=== PATIENT | female | born 1965 | race Caucasian/White ===

== ENCOUNTER 2024-04-07 13:11 | Outpatient (AMB) | payer BC, SELFPAY ==
[2024-04-07 13:13] VITALS: BP 118/78; PULSE 96; O2SAT 98
--- NOTE | 2024-04-07 13:13 | A.OFFPC_ITS ---
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
--- NOTE | 2024-04-07 13:13 | MHC.PC.OV ---
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
--- NOTE | 2024-04-07 13:17 | AM.OFFWIN_ITS ---
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 for 5 days Urine sent for culture as well. [facility] Social History Patient Tobacco Use Status: Never used Tobacco Review of Systems Const All systems reviewed & are unremarkable except as noted in HPI and below Physical Exam Vital Signs: Last Vital Signs Pulse 96 04/07/24 13:13 BP 118/78 04/07/24 13:13 Pulse Ox 98 04/07/24 13:13 Oxygen Delivery Method Room Air 04/07/24 13:13 BMI result Body Mass Index 20.0 Const General: no acute distress Orientation/consciousness: patient oriented x3 Eyes General: appearance normal, both eyes and all related structures Resp Effort & Inspection: normal respiratory effort and able to speak in complete sentences GI Abdomen image: 2 1. Uncomfortable with pressure Neuro General: patient oriented x3 Psych Mental Status: mental status grossly normal Results AMB Urinalysis, Automated 2 UA Leukoctes 125 Oz/uL Last Edit by Jackson Avelar CMA on 04/07/24 13:2 1 UA Nitrite Negative Last Edit by Jackson Avelar CMA on 04/07/24 13:21 UA Urobilinogen 0.2 mg/dL Last Edit by Jackson Avelar CMA on 04/07/24 13 :21 UA Protein 30 mg/dL Last Edit by Jackson Avelar CMA on 04/07/24 13:21 UA pH 6.0 Last Edit by Jackson Avelar CMA on 04/07/24 13:21 UA Blood 200 Tarun/uL Last Edit by Jackson Avelar CMA on 04/07/24 13:21 UA Specific Carson 1.030 Last Edit by Jackson Avelar CMA on 04/07/24 13:21 UA Ketone Negative Last Edit by Jackson Avelar CMA on 04/07/24 13:21 UA Bilirubin 1 mg/dL Last Edit by Jackson Avelar CMA on 04/07/24 13:21 UA Glucose 0 mg/dL Last Edit by Jackson Avelar CMA on 04/07/24 13:21 Results Reviewed Results Reviewed: Laboratory Last Values Urine pH (Auto) 6.0 04/07/24 13:20 Specific Carson (Auto) 1.030 04/07/24 13:20 Urine Protein (Auto) 30 mg/dL 04/07/24 13:20 Glucose (UA)(Auto) 0 mg/dL 04/07/24 13:20 Urine Ketones (Auto) Negative 04/07/24 13:20 Urine Blood (Auto) 200 Tarun/uL 04/07/24 13:20 Urine Nitrite (Auto) Negative 04/07/24 13:20 Urine Bilirubin (Auto) 1 mg/dL 04/07/24 13:20 Urine Urobilinogen (Auto) 0.2 mg/dL 04/07/24 13:20 Leukocyte Esterase (Auto) 125 Oz/uL 04/07/24 13:20 Assessment & Plan Assessment & Plan (1) Acute cystitis with hematuria: Code(s): N30.01 - Acute cystitis with hematuria Plan 58-year-old female came in today to be evaluated for possible urinary tract infection Her symptoms has been going on for the past 4 days Patient has started taking phly-yhf-adleocd medication but that has not help She is having urgency frequency and uncomfortable feeling when she urinate There is no new back pains Review system: There is no fever no chills there is no nausea no vomiting no diarrhea UA is positive for leuk esterase and blood I am treating her with nitrofurantoin 100 mg b.i.d. for 5 days Urine sent for culture as well. Orders: Orders 2 AMB Urinalysis Automated Today Z13.9 - Encounter for screening, unspecified Urine Culture Today N30.01 - Acute cystitis with hematuria Medications: New 2 nitrofurantoin macrocrystal must administer with a meal/food 100 mg PO Q12H 10 caps 0RF Coding Level of Care Code New Pt Level 3 (21184) Diagnoses Acute cystitis with hematuria N30.01
== END 2024-04-07 15:45 | disposition home or self-care (01) ==
PROVIDERS: PCP Physician Assistant; Visit Provider Internal Medicine
DX: N30.01 Acute cystitis with hematuria (principal)
CPT/HCPCS: 81003; 99203

== ENCOUNTER 2024-04-07 14:08 | Outpatient (REF) | payer BC, SELFPAY | END 2024-04-07 14:09 | disposition home or self-care (01) | LOC: HO.LAB 14:08 | PROVIDERS: Visit Provider Internal Medicine | DX: N30.01 Acute cystitis with hematuria (principal) | CPT/HCPCS: 87086; 87088; 87186 ==

== ENCOUNTER 2025-09-06 09:08 | Outpatient (AMB) | payer BC, SELFPAY ==
[2025-09-06 09:14] VITALS: BP 110/82; PULSE 78; TEMP 36.4; O2SAT 100; BMI 20.4
--- NOTE | 2025-09-06 09:14 | AM.OFFWIN_ITS ---
Intake Vital Signs 09/06/25 09:14 Height 5 ft 4 in Weight 119 lb BMI 20.4 BP 110/82 Blood Pressure Location Lt brachial Position Sitting Pulse 78 Pulse Source Pulse Oximeter Temp 97.5 F Temp Source Oral Pulse Oximetry (%) 100 Oxygen Delivery Method Room Air Intake Visit Reasons: EP-uti Intake Note: pt presents with concern for UTI after experiencing fainting and nausea 5 days ago, also experiencing frequent urination Patient Tobacco Use Status: Never used Tobacco Allergies No Known Allergies Allergy (Verified 09/06/25 09:30) Medication List - Last Reconciled 09/06/25 by Catherine Katz NP acyclovir 400 mg PO DAILY PRN estradiol 0.01%(0.1mg/gram) vaginal Do you need a note to return to daycare/school/sports/work: No HPI HPI Comments History of Present Illness Details 59 y/o female presents to walk-in clinic with c/o urinary frequency. Over the weekend she went out with friends for dinner/drinks; reports drinking 2 cocktails and immediately feeling dizzy, lightheaded, vomiting, and experiencing lower body weakness ? symptoms significant enough that friends had to carry her out of the restaurant. Symptoms resolved by the next day. She researched possible causes online and was concerned about a UTI. Purchased OTC urine test strips from [employer] which showed a positive result per patient report. Currently denies fevers, chills, abdominal pain, nausea, vomiting, diarrhea, or constipation. No flank pain reported. [facility] Medical History (Updated 09/06/25 @ 09:53 by Catherine Katz NP) Increased urinary frequency Social History Patient Tobacco Use Status: Never used Tobacco Review of Systems Const All systems reviewed & are unremarkable except as noted in HPI and below Physical Exam Vital Signs: Last Vital Signs Temp 97.5 F 09/06/25 09:14 Pulse 78 09/06/25 09:14 BP 110/82 09/06/25 09:14 Pulse Ox 100 09/06/25 09:14 Oxygen Delivery Method Room Air 09/06/25 09:14 BMI result Body Mass Index 20.4 Const General: no acute distress Nutritional Appearance: well nourished Orientation/consciousness: patient oriented x3 Resp Effort & Inspection: normal respiratory effort Auscultation: crackles and rales Cardio Rate: regular rate GI Inspection: Yes normal to inspection General: Yes no CVA tenderness Back/Spine/Pelvis Back: no CVA tenderness Neuro General: patient oriented x3, gait normal and moves all extremities Psych Speech and movement: Normal speech and movement present Assessment & Plan Assessment & Plan (1) Increased urinary frequency: Code(s): R35.0 - Frequency of micturition Plan: Episode of acute dizziness/vomiting/weakness after consuming alcohol ? unclear etiology. Differential: Alcohol-related reaction (intolerance, interaction if on meds), vasovagal episode, dehydration, possible drink contamination, transient hypotension. Symptoms resolved within 24 hours and no recurrence. Urinalysis Negative. Symptoms currently limited to frequency; denies systemic symptoms. OTC urine strips may have variable accuracy. Urine strips may not be reliable for diagnosis. Reviewed warning signs requiring urgent care: fever, flank pain, worsening symptoms, recurrent vomiting, or recurrent dizziness/lightheadedness. Coding Level of Care Code Est Pt Level 4 (56635) Diagnoses Increased urinary frequency R35.0 Time Spent (min) 20
--- OUTSIDE RECORDS SUMMARY | 2025-09-06 11:26 | XMS_ITS | Encounter Summary ---
Author Organization [facility] Address [address] [place] [address] [address] [place] [address] Phone Care Team Providers Care Operations Technician Name Role Phone Mary Morin MD Primary Care Prov ider Encounter Details Date Type Department Care Team ([facility] st Contact Info) Description 08/29/[address] [facility] Emergency Department [address] [place] [address] Pradeep Jeff MD [address] [place] [address] [email or web address] Social History Tobacco Use Types Packs/Day Years Used Date Smoking Tobacco: Never Assessed Education Answer Date Recorded Are you interested in more education? Not on marco e 08/29/2024 Are you concerned about learning? Not on file 08/29/2024 No 08/29/2024 No 08/29/2024 Digital Access Answer Date Recorded No 08/29/2024 No 08/29/2024 Reliable internet access at home? Not on file 08/29/2024 Device with a working camera? Not on file Intimate Partner Violence Answer Date R ecorded Are you denied basic needs s uch as food, clothing, or medical care? No 08/29/2024 In the past 12 months have y ou been in a relationship with a person who hurts, threatens, or tries to control you? No 08/29/2024 Are you denied basic needs s uch as food, clothing, or medical care? No 08/29/2024 In the past 12 months have y ou been in a relationship with a person who hurts, threatens, or tries to control you? No 08/29/2024 Comments Unknown Sex and Gender Information Value Date Recorded Sex Assigned at Female 08/29/2024 1:36 PM EST Legal Sex Female 8:53 AM EST Gender Identity Female 08/29/2024 1:36 PM EST Sexual Orientation Straight 08/29/2024 1: 36 PM EST documented as of this encounter Functional Status * Calculated C-SSRS Risk Score (Lifetime/Recent) Answer Date of Assessment Author No Risk Indicated 08/29/2024 1:58 PM EST Jaime Marcelino RN * [place] Suicide Severity Rating Scale (Screener/Recent Self-Report) Question Answer Date of Assessment Author 1. Wish to be (Past 1 Month) No 08/29/2024 1:58 PM Jaime Frey RN 2. Non-Specific Active Suicidal Thoughts (Past 1 Month) No 08/29/2024 1:58 PM Jaime Frey RN 6. Suicidal Behavior (Lifetime) No 08/29/2024 1:58 PM Jaime Frey RN documented as of this encounter Plan of Treatment Not on file documented as of this encounter Visit Diagnoses Not on filedocumented in this encounter Care Teams Operations Technician Relationship Specialty Start Date End Date Mary Morin MD [address] [place] [address] [place] [address] PCP - General 08/28/24 documented as of this encounter Additional Source Comments The information contained in this document represents components of the legal health record. It is not the complete legal health record.[facility]
--- OUTSIDE RECORDS SUMMARY | 2025-09-06 11:26 | XMS_ITS | Clinical Summary ---
Author Organization [facility] Address [address] [place] [id number] Phone Care Team Providers Care Sales Analytics Manager Name Role Phone Mary Morin MD Primary Care Prov ider Allergies No known active allergies Medications dextroamphetamin e-amphetamine (ADDERALL XR) 10 MG 24 hr capsule Act john acyclovir (ZOVIRAX) 400 MG tablet Take by mouth. 03/17/2023 Active estradioL (ESTRACE) 0.01 % (0.1 mg/gram) vaginal cream Active triamcinolone acetonide 0.1 % ointment Apply topically. 08/25/2023 Active brimonidine (ALPHAGAN P) 0.1 % Drop Place 1 drop into the right eye 2 (two) times a day as needed. 10 mL 3 09/26/2024 Active prednisoLONE acetate (PRED FORTE) 1 % ophthalmic suspension Place 1 drop into the right eye 4 (four) times a day. 5 mL 10/25/2024 Active Active Problems No known active problems Social History Tobacco Use Types Packs/Day Years Used Date Smoking Tobacco: Never Smokeless Tobacco: Never Tobacco Cessation:Counseling Given: Not Answered Education Answer Date Recorded Are you interested [...] Orientation Straight 08/29/2024 1: 36 PM EST Last Filed Vital Signs Vital Sign Reading Time Taken Comments Blood Pressure 123/83 08/29/2024 1:58 PM EST Pulse 87 08/29/2024 1:58 PM EST Temperature 36.2 C (97.2 F) 08/29/2024 1:58 PM EST Respiratory Rate 18 08/29/2024 1:58 PM EST Oxygen Saturation 100% 08/29/2024 1:58 PM EST Inhaled Oxygen Concentration - - Weight 53.5 kg (118 lb) 08/29/2024 1:58 PM EST Height 164.5 cm (5' 4.75 ) 08/29/2024 1:58 PM ES T Body Mass Index 19.79 08/29/2024 1:58 PM EST Plan of Treatment Health Maintenance Due Date Last Done Comments Adult Td,Tdap Booster 1966 LIPID PANEL 1966 DEPRESSION SCREENING 1978 HEPATITIS C SCREENING 1984 HIV ONE-TIME SCREENING (18-6 5 YEARS) 1984 PAP SMEAR 12/25/1987 MAMMOGRAM 2006 COLOGUARD 12/25/2011 COLONOSCOPY 12/25/2011 COLORECTAL CANCER SCREENING 12/25/2011 FIT TEST 12/25/2011 FOBT 12/25/2011 SIGMOIDOSCOPY 12/25/2011 VIRTUAL COLONOSCOPY 12/25/2011 PNEUMOCOCCAL VACCINES (50+ y ears) (1 of 1 - PCV) 2016 ZOSTER VACCINES (1 of 2) 2016 INFLUENZA VACCINE (#1) 2025 COVID-19 VACCINE (1 - 2024-2 6 season) 2025 RSV VACCINE (1 - 1-dose 75+ series) 2041 SMOKING STATUS SCREENING (On ce After 26 Yrs) Completed 09/26/2024 HEPATITIS A VACCINES Aged Out No long er eligible based on patient's age to complete this topic HIB VACCINES Aged Out No longer eligi ble based on patient's age to complete this topic IPV VACCINES Aged Out No longer eligi ble based on patient's age to complete this topic MENINGOCOCCAL VACCINES (ACWY) Aged Out No longer eligible based on patient's age to complete this topic MENINGOCOCCAL VACCINES (B) Aged Out N o longer eligible based on patient's age to complete this topic Medical Devices Not on file Insurance PPO [facility] PPO PPO PPO [place]UE [place] OUT OF STATE PPO [facility] OUT [facility] PPO Care Teams Sales Analytics Manager Relationship Specialty Start Date End Date Mary Morin MD [address] [place] [address] [place] [address] PCP - General 08/28/24 Additional Source Comments The information contained in this document represents components of the legal health record. It is not the complete legal health record.[facility]
== END 2025-09-06 09:54 | disposition home or self-care (01) ==
PROVIDERS: PCP Physician Assistant; Visit Provider Nurse Practitioner Family
DX: R35.0 Frequency of micturition (principal); Z13.9 Encounter for screening, unspecified

== ENCOUNTER → 2025-09-06 09:08 | Outpatient (BNVA) | payer BC, SELFPAY | PROVIDERS: PCP Physician Assistant; Visit Provider Nurse Practitioner Family | DX: R35.0 Frequency of micturition (principal) | CPT/HCPCS: 81003 ==